=== PATIENT | female | born 1975 | race Two or more races ===

== ENCOUNTER 2016-09-10 14:54 | Observation (INO) | payer SELFPAY ==
[2016-05-19 12:27] VITALS: BP 122/76
[2016-09-10 15:51] LABS: NEG OBC AMNIO NEG; POS OBC AMNIO POS
[2016-09-10] MEDS ORDERED: BETAMET ACET&NA PHOS 30 MG/5 ML VIAL. IM ONE (16:45)
[2016-09-10] MEDS ORDERED: MAGNESIUM SULFATE 4GM 100 ML IV ONE (16:45)
[2016-09-10] MEDS ORDERED: IV RINGERS,LACTATED 500ML 500 ML IV ONE (16:45)
[2016-09-10] MEDS ORDERED: AMPICILLIN 2 GM in IV NORMAL SALINE 100ML 100 ML IV ONE (17:00)
[2016-09-10 17:13] LABS: BASO % 0 % (0-3); EOS % 1 % (0-3); HEMATOCRIT 34.7 % (36.0-47.0); HEMOGLOBIN 11.7 g/dL (12.0-15.5); LYMPH # 2.3 x10^3/uL (1.0-4.8); LYMPH % 25 % (24-48); MEAN CORPUSCULAR HEMOGLOBIN 30 pg (25-35); MEAN CORPUSCULAR HGB CONC 34 g/dL (31-37); MEAN CORPUSCULAR VOLUME 90 fL (79-100); MONO % 8 % (0-9); NEUT % 67 % (31-73); PLATELET COUNT 213 x10^3/uL (140-400); RED BLOOD COUNT 3.84 x10^6/uL (3.50-5.40); RED CELL DISTRIBUTION WIDTH 13.1 % (11.5-14.5); WHITE BLOOD COUNT 9.3 x10^3/uL (4.0-11.0)
[2016-09-10 17:18] LABS: CALCIUM 8.4 mg/dL (8.5-10.1); CREATININE 0.6 mg/dL (0.6-1.0); GFR 111.3; POTASSIUM 3.6 mmol/L (3.5-5.1)
[2016-09-10 17:25] LABS: ALBUMIN 2.8 g/dL (3.4-5.0); ALBUMIN/GLOBULIN RATIO 0.7 (1.0-1.7); TOTAL BILIRUBIN 0.2 mg/dL (0.2-1.0); TOTAL PROTEIN 6.7 g/dL (6.4-8.2)
--- NOTE | 2016-09-10 17:33 | PDOC1 ---
OB - History Hx of Present Care: Good Care Ultrasounds: Normal mid trimester US Obstetrical Complications: Other (PPROM ) Medical Complications: None Past Family/Social History * Past Medical, Surgical, Family and Obstetric Histories reviewed from chart. Rubella: Immune RPR/VDRL: Negative GBS Status: Unknown HBsAG: Negative OB - Chief Complaint & HPI Date of Admission: Date of Admission: Sep 10, 2016 at 14:54 Chief Complaint/History : 3 Para: 2 EGA: 30 Reason for admission: labor, rupture of membranes Admission Nurse Assessment Rev: Yes Problems: OB - Admission Exam Physical Exam HEENT: Normal Heart: Regular Rate Lungs: Clear Abdomen: Gravid, Non tender, Soft Extremities: Edema Reflexes: Normal Cervical Dilatation: 1cm Effacement: 50% Station: -3 Membranes: Ruptured Amniotic Fluid: Clear Heart Rate: Normal Accelerations: Accelerations Present Decelerations: No decelerations Contractions on Admission: >10 Minutes Apart Intensity: Mild Text A: 28 wks IUP PPROM P: ADmit for transfer to [facility]. Start Ampicillin and Erythromycin IV. Start corticosteroids. SANDY WHITLOCK Jr, MD Sep 10, 2016 17:33
[2016-09-10] MEDS ORDERED: IV RINGERS,LACTATED 1000ML 1,000 ML IV PRN (17:45)
[2016-09-10] MEDS ORDERED: MAGNESIUM SULFATE 20GM 500 ML IV SCH (18:00)
[2016-09-10] MEDS ORDERED: ERYTHROMYCIN BASE 250 MG TABLET PO SCH (21:00)
== END 2016-09-10 18:57 | disposition home or self-care (01) ==
LOC: 3 SO LND 14:54
PROVIDERS: ADMIT Specialist; ATTEND Specialist
DX: O42.913 Preterm premature rupture of membranes, unspecified as to length of time between rupture and onset of labor, third trimester (principal); O36.8130 Decreased fetal movements, third trimester, not applicable or unspecified; Z3A.28 28 weeks gestation of pregnancy
CPT/HCPCS: 36415; 80053; 84112; 85027; 96361; 96365; 96366; 96368; 96372; G0378; G0379; J0290; J0702; J3475; J7120